=== PATIENT | female | born 1955 | race Caucasian/White ===

== ENCOUNTER 2024-05-13 09:32 | Inpatient (IN) ==
--- NOTE | 2024-05-04 14:08 | PAT Medication Instructions ---
Medication Instructions Date of Service May 04, 2024 Home Medications atorvastatin 40 mg tablet (Lipitor) 40 mg PO HS clopidogrel 75 mg tablet 75 mg PO QAM metoprolol succinate 25 mg tablet,extended release 24 hr 100 mg PO QAM prednisone 5 mg tablet 5 mg PO QAM ipratropium 20 mcg-albuterol 100 mcg/actuation mist for inhalation (Combivent Respimat) 2 puff inhalation QID PRN Shortness Of Breath Or Wheezing fluticasone furoate 50 mcg-vilanterol 25 mcg/dose inhalation powder (Breo Ellipta) 1 ea inhalation DAILY amlodipine 10 mg tablet 10 mg PO QAM doxycycline hyclate 100 mg capsule 100 mg PO BID ASK your prescriber and surgeon clopidogrel 75 mg tablet 75 mg PO QAM Take morning of surgery With a small sip of water, OTHERWISE NOTHING TO EAT OR DRINK AFTER MIDNIGHT: metoprolol succinate 25 mg tablet,extended release 24 hr 100 mg PO QAM prednisone 5 mg tablet 5 mg PO QAM ipratropium 20 mcg-albuterol 100 mcg/actuation mist for inhalation (Combivent Respimat) 2 puff inhalation QID PRN Shortness Of Breath Or Wheezing (if needed) fluticasone furoate 50 mcg-vilanterol 25 mcg/dose inhalation powder (Breo Ellipta) 1 ea inhalation DAILY amlodipine 10 mg tablet 10 mg PO QAM doxycycline hyclate 100 mg capsule 100 mg PO BID Take evening before surgery atorvastatin 40 mg tablet (Lipitor) 40 mg PO HS ipratropium 20 mcg-albuterol 100 mcg/actuation mist for inhalation (Combivent Respimat) 2 puff inhalation QID PRN Shortness Of Breath Or Wheezing (if needed) doxycycline hyclate 100 mg capsule 100 mg PO BID Other Notes If you have any questions please call us at [phone] or [phone] or [phone] or [phone]
--- NOTE | 2024-05-06 08:26 | Anesthesiology Consultation ---
Date of Service May 06, 2024 Assessment & Plan (1) Encounter for pre-operative examination: - Infectious disease screening: Per assessment on 05/06/24: No known recent infectious disease contacts or current infectious disease symptoms. - Cardiology visit (05/05/24): "Based on history, physical examination and the above information do not recommend further invasive or noninvasive cardiovascular testing or procedures prior to proceeding with planned venous surgery. Patient is well optimized from a cardiac standpoint to proceed with her scheduled procedure.. Patient is on aspirin and clopidogrel due to her peripheral arterial disease, therefore, we will leave recommendations on antiplatelets management to your discretion. However, we typically recommend holding clopidogrel for 5-7 days prior to surgery and maintain patient on aspirin for elective procedures. However, this could also be held for 5-7 days if it is felt her bleeding risk is elevated." - Chronic Hyponatremia: Preop labs note sodium at 128. No comparison labs available. Reviewed with Dr. Hillman- recommended comment from PCP if possible. Note sent to PCP- received response from PCP (05/07/24): "Patient does have a history of hyponatremia.. Follows with nephrology for this. Patient is on daily prednisone.. Appears her baseline is between 130 and 133. Would encourage patient to follow her 1.5 L fluid restriction..Send last nephro OV and last CMP/BMP" > PCP forwarded 02/2024 [facility] office visit note in which patient was referred there for evaluation of chronic hyponatremia x 6 months- stable/at baseline at that time. Previous diuretics adjusted. Patient made aware by PCP office 05/07/24 recommendations of fluid restriction prior to surgery given preop findings. PCP/nephro notes/recommendations reviewed with Dr. Hillman. He feels patient okay to proceed as scheduled pending repeat BMP DOS- ordered. - Patient states she will be seeing pulmonary for routine visit that is scheduled prior to upcoming surgery. Awaiting pulmonary office visit note (Dr. Ravi/[facility], appt 05/11). Patient otherwise acceptable risk for given surgery. Chart Review Chart Review: Patient seen in Pre Admission Testing History Surgery Operation Date: 05/13/24 11:50 Proposed Procedures p Right Femoral Artery to Tibial Artery Bypass Graft - Gary Oshea MD Height/Weight Height: 4 ft 11 in Weight: 58.8 kg Allergies Allergy/AdvReac Type Severity Reaction Status Date / Time green marroquin Allergy Mild Rash Verified 05/04/24 12:36 Penicillins Allergy Mild Hives Verified 05/04/24 12:36 Sulfa (Sulfonamide Allergy Mild Hives Verified 05/04/24 12:36 Antibiotics) codeine AdvReac Severe Vomiting Verified 05/04/24 12:36 Medications Home Medications Medication Instructions Recorded Confirmed Last Taken atorvastatin 40 mg tablet (Lipitor) 40 mg PO HS 02/18/19 05/04/24 04/02/24 22:00 clopidogrel 75 mg tablet 75 mg PO QAM 02/18/19 05/04/24 04/03/24 05:00 metoprolol succinate 25 mg 100 mg PO QAM 02/18/19 05/04/24 04/03/24 05:00 tablet,extended release 24 hr nebulizers 02/18/19 02/18/19 Unknown prednisone 5 mg tablet 5 mg PO QAM 02/18/19 05/04/24 04/03/24 05:00 15 mg ipratropium 20 mcg-albuterol 100 2 puff inhalation QID PRN 02/20/19 05/04/24 04/03/24 07:30 mcg/actuation mist for inhalation Shortness Of Breath Or Wheezing (Combivent Respimat) fluticasone furoate 50 1 ea inhalation DAILY 04/03/24 05/04/24 04/03/24 05:00 mcg-vilanterol 25 mcg/dose inhalation powder (Breo Ellipta) amlodipine 10 mg tablet 10 mg PO QAM 05/04/24 05/04/24 Unknown doxycycline hyclate 100 mg capsule 100 mg PO BID 05/04/24 05/04/24 Unknown Past Medical History Medical History (Updated 05/07/24 @ 11:44 by Lexi Garcia) Anxiety Aorto-iliac disease Asthma Bunion of great toe of right foot Following with podiastrist (Dr. Bobo) Difficulty with right foot/bunion ulceration healing intermittently over past 7+ months- podiatry referred patient to vascular/Dr. Oshea d/t decreased blood flow to the foot (reason for upcoming surgery) Chronic hyponatremia Since 2022 Following with nephro, diuretics dosing adjusted at previous visit 02/2024 COPD (chronic obstructive pulmonary disease) Follows with Dr. Ravi[facility] 2.5 via NC HS + PRN activity (rare PRN use) High cholesterol History of coma (2017) Sepsis r/t ? central line infection in setting of flu- pt reports "being on life support" for 1 week at [facility] HTN (hypertension) Hx of colonic polyps On home oxygen therapy 2.5 via NC HS + PRN activity (rare PRN use) Exercise / Class Metabolic Activity III < 4 Walking/Shop/Light housework Past Surgical History Surgical History History of knee surgery left leg - "nerve freeze" Hx of aorto-femoral bypass (2015) [facility] - Fem-Fem right to left Bypass right external iliac artery Hx of colonoscopy with polypectomy Status post insertion of iliac artery stent Past Anesthesia History No Hx of Anesthesia Complications and No Family Hx of Anesthesia Complications History of PONV No Hx of PONV and No Hx of Motion Sickness Social History Smoking Status: Current every day smoker tobacco type: cigarettes Smoking cigarettes per day: smokes 4-5 cigs/day Do You Dip or Chew Tobacco: No Hx Alcohol Use: Yes Alcohol type: beer alcohol intake frequency: a few times a month Hx Substance Use: No substance use type: does not use Review of Systems Occasional palpitations. Posterior cervical sebaceous cyst lanced 05/04/24- David at surgeon's office made aware and states she will relay message to Tia/surgeon. Patient denies chest pain, shortness of breath, fever, chills, cough, wheezing. Physical Exam Vital Signs BP 111/68 P 97 TEMP 97.9 SP02 94%RA RESP 18 Physical Full cervical extension range of motion. Full TMJ range of motion. TMD > 3.5 finger breaths Mallampati Score 3 Dentition: upper/lower partials Lungs: clear throughout to auscultation Cardiac: regular rate and rhythm, no murmurs noted Spine: normal Carotid arteries: negative bruit Extremities: no LE edema Lab Results Anesthesia Preop Results Results Anesthesia Widget: WBC 9.48 K/ul (4.8-10.8) 05/06/24 Hgb 13.1 g/dl (12.0-16.0) 05/06/24 Hct 38.5 % (37.0-47.0) 05/06/24 Plt 353 K/uL (130-400) 05/06/24 Na 128 mmol/L (136-145) L 05/06/24 K 3.9 mmol/L (3.5-5.1) 05/06/24 Cl 91 mmol/L (98-107) L 05/06/24 CO2 29 mmol/L (21-32) 05/06/24 BUN 6 mg/dl (6-23) 05/06/24 Creat 0.47 mg/dl (0.6-1.2) L 05/06/24 Glucose Level 105 mg/dl (70-99(Fasting)) H 05/06/24 PT 10.1 Seconds (9.0-12.0) 05/06/24 PTT 28 Seconds (21-31) 05/06/24 INR 0.9 (0.9-1.1) 05/06/24 Blood Type A Positive 05/06/24 Antibody Screen NEGATIVE 05/06/24 Testing Electrocardiogram Date: 05/05/24 SR at 96bpm. LAE. Chest X-Ray Date: 12/15/23 Bibasilar and RML atelectatic changes. No consolidation, pneumothorax or pleural effusion. The cardiomediastinal silhouette is within normal limits. Echocardiogram Date: 03/15/22 EF 60%. No obvious RWMA. Mild LAD. Elevated left atrial pressures. Degenerated valve, at most mild mitral stenosis (MG 5mmhg).
--- NOTE | 2024-05-12 13:49 | History & Physical Report ---
Date of Service May 12, 2024 History of Present Illness Primary Care Provider: MARBIN Rashid Subjective I had the pleasure of seeing Princess today for follow-up. As you know she is a 68-year-old female who recently had arteriography for a nonhealing ulcer over her first metatarsal head of the right foot. She was found to have a popliteal artery and tibioperoneal trunk occlusion. He is seen in the office today. Her ulcer is now gotten bigger and she has new ulcerations of the great toe. Objective Vitals & Measurements HR: 88 (Monitored) BP: 110/64 SpO2: 96% Physical Exam On exam patient is awake alert and oriented x 3. Blood pressure is 110/64. Lungs are clear. Cor has a reg rate and rhythm. Abdominal exam is benign. She has good femoral pulses in the patent femorofemoral bypass. The right lower extremity has no palpable pulses. There is ulceration present over the metatarsal head medially as well as the 2 ulcerations of the great toe on the medial surface and dorsal surface. Assessment/Plan 1. 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 Risks options benefits were discussed with the patient and documented in the consent form. She is agreeable to go ahead with the surgical procedure. We will image her saphenous vein for availability for a bypass. If the saphenous vein is not usable then prosthetic will be used. We also have her undergo cardiac clearance prior to the procedure. Thank you very much for letting us participate in the care of this patient. Sincerely, Ebony Oshea MD Attestation I have personally spent ___25__ minutes performing [id number] and [id number] activities on this date of service. Activities Include: _x_ review of the medical record _x_ obtaining a history _x_ physical exam/evaluation __ review labs __ review radiology reports _x_ counseling/educating patient/family/caregiver __ discussion/referral to other healthcare professional _x_ documenting care in the medical record __ independent interpretation of results __ communication of results to patient/family/caregiver __ coordination of care Signature Line Electronic Signature on File Gary Oshea MD Author Signature Dt/Tm: 04/30/2024 11:41 AM Pneumatic Tester [facility] [address], [address] [place] [address] Electronically Reviewed/Signed by: Gary Oshea MD Cosigner Signature Dt/Tm: 04/30/2024 11:42 AM Pneumatic Tester [facility] [address], [address] [place] [address] EJS Result Type: .Outpt Ltr Date of Service: April 30, 2024 11:39 EDT Authorization Status: Modified Subject: Follow Up Visit Author or Import Date: MD Oshea Eugene J on April 30, 2024 11:41 EDT Verified By: MD Oshea Eugene J on April 30, 2024 11:41 EDT Encounter info: [id number], [facility] Clinic, 04/30/2024 - 04/30/2024 Allergies Allergy/AdvReac Type Severity Reaction Status Date / Time green marroquin Allergy Mild Rash Verified 05/04/24 12:36 Penicillins Allergy Mild Hives Verified 05/04/24 12:36 Sulfa (Sulfonamide Allergy Mild Hives Verified 05/04/24 12:36 Antibiotics) codeine AdvReac Severe Vomiting Verified 05/04/24 12:36 Home Medications Medication Instructions Recorded Confirmed Type atorvastatin 40 mg tablet (Lipitor) 40 mg PO HS 02/18/19 05/04/24 History clopidogrel 75 mg tablet 75 mg PO QAM 02/18/19 05/04/24 History metoprolol succinate 25 mg 100 mg PO QAM 02/18/19 05/04/24 History tablet,extended release 24 hr nebulizers 02/18/19 02/18/19 History prednisone 5 mg tablet 5 mg PO QAM 02/18/19 05/04/24 History ipratropium 20 mcg-albuterol 100 2 puff inhalation QID PRN 02/20/19 05/04/24 History mcg/actuation mist for inhalation Shortness Of Breath Or Wheezing (Combivent Respimat) fluticasone furoate 50 1 ea inhalation DAILY 04/03/24 05/04/24 History mcg-vilanterol 25 mcg/dose inhalation powder (Breo Ellipta) amlodipine 10 mg tablet 10 mg PO QAM 05/04/24 05/04/24 History doxycycline hyclate 100 mg capsule 100 mg PO BID 05/04/24 05/04/24 History Past Med/Surg History Problem List (Updated 05/07/24 @ 11:44 by Lexi Garcia) Encounter for pre-operative examination Medical History (Updated 05/07/24 @ 11:44 by Lexi Garcia) Chronic hyponatremia Since 2022 Following with nephro, diuretics dosing adjusted at previous visit 02/2024 Bunion of great toe of right foot Following with podiastrist (Dr. Bobo) Difficulty with right foot/bunion ulceration healing intermittently over past 7+ months- podiatry referred patient to vascular/Dr. Oshea d/t decreased blood flow to the foot (reason for upcoming surgery) Aorto-iliac disease Hx of colonic polyps Anxiety History of coma (2016) Sepsis r/t ? central line infection in setting of flu- pt reports "being on life support" for 1 week at [facility] On home oxygen therapy 2.5 via NC HS + PRN activity (rare PRN use) High cholesterol COPD (chronic obstructive pulmonary disease) Follows with Dr. Ravi[facility] 2.5 via NC HS + PRN activity (rare PRN use) Asthma HTN (hypertension) Surgical History Hx of colonoscopy with polypectomy Hx of aorto-femoral bypass (2015) [facility] - Fem-Fem right to left Bypass right external iliac artery Status post insertion of iliac artery stent History of knee surgery left leg - "nerve freeze" Social History Smoking Status: Current every day smoker Tobacco Type: Cigarettes Cigarettes Per Day: smokes 4-5 cigs/day; Second Hand Exposure: No; Do You Dip or Chew Tobacco: No; Tobacco Cessation Education Requested by Patient: No Hx Alcohol Use: Yes Alcohol type: beer Hx Substance Use: No Preferred Language: Nepalese Communication Ability: Effective Commercial Real Estate Broker Required: No Beliefs That Will Affect Care: None Current Living Situation: Significant Other Other Information That Helps Us Care for You: No Feels Safe at Home: Yes Safety Concerns: Feels Safe At This Time Assistive Devices: Denture - Upper, Denture - Lower, Glasses and Oxygen - at Night Assistive Devices Comment: partials top and bottom
[2024-05-13] MEDS: VANCOMYCIN HCL 1,000 MG/270 ML BAG IV SCH (09:54)
[2024-05-13] MEDS: LACTATED RINGER'S 1,000 ML BAG IV SCH (09:54)
[2024-05-13] MEDS ORDERED: HYDROCORTISONE SOD 100 MG in SYRINGE 0 ML IV SCH (10:00)
[2024-05-13 10:21] LABS: Calcium 9.3 mg/dl (8.6-10.3); Creatinine Clr Calc Pharmacy 91.9 ml/min; Est GFR (African American) 119.3 ml/min; Est GFR (Non-African American) 102.9 ml/min; Potassium 4.4 mmol/L (3.5-5.1)
[2024-05-13] MEDS ORDERED: PROMETHAZINE HCL 6.25 MG in SODIUM CHLORIDE 0.9% 50 ML IV PRN (10:23)
[2024-05-13] MEDS ORDERED: PHENYLEPHRINE/NSS 25 MG/250 ML BAG IV PRN ×2 (10:23→17:22)
[2024-05-13] MEDS ORDERED: LABETALOL HCL IV 5 MG/ML 20ML IV PRN (10:23)
[2024-05-13] MEDS ORDERED: ATROPINE SULFATE 0.1 MG/ML 10ML SYR IV PRN (10:23)
[2024-05-13] MEDS ORDERED: ePHEDrine sulfate 50 MG/ML AMP IV PRN (10:23)
--- NOTE | 2024-05-13 11:41 | History & Physical Bridge Note ---
Date of Service May 13, 2024 History & Physical Bridge Note I have examined the patient, reviewed the History & Physical and in the interval since the performance of the History & Physical I have noted the following changes of clinical significance: no changes noted
[2024-05-13] MEDS ORDERED: fentaNYL citrate PF 100 MCG/2 ML VIAL ONE (11:49)
[2024-05-13] MEDS ORDERED: MIDAZOLAM HCL 1 MG/ML 2ML VIAL ONE (11:49)
[2024-05-13] MEDS: HYDROCORTISONE SOD SUCCINATE 100 MG/2 ML VIAL IV SCH (11:58)
--- NOTE | 2024-05-13 11:59 | Anesthesia Procedure Note ---
Anesthesia Procedure Note Arterial Line Note Patient medical history, medications, allergies and vitals reviewed. Date of procedure: 05/13/24 Consent: Risk / Benefits Reviewed With: PT / POA / Parent / Guardian, Accepts Plan, Informed Consent Obtained and All Questions Answered Monitors attached: Pulse Oximetry Time out completed: Yes Premedication: None Laterality: Left Location: Radial Hand hygeine: Soap and water and Alcohol based hand rub Equipment/Supplies: Cap, Mask, Sterile gloves and Sterile drapes Skin prep: Chloraprep Local medication: 1% Lidocaine (ml) Ultrasound used: Yes US equipment and supplies: Sterile Gel and Sterile Probe Cover Attempts: 1 Procedure Summary: 20 gauge angiocath advanced until return of bright red blood. Catheter threaded using seldinger technique with return of pulsatile, bright red blood. Catheter secured with tape and covered with occlusive dressing. Waveform consistent with correct arterial placement. After placement, normal perfusion was observed distal to the site of catheter placement. Post-Procedure: Pt hemodynamically stable, Pt tolerates well and No complication Anesthesia Charges Arterial Line A Line Charges: 53820 Insert [facility]
[2024-05-13] MEDS ORDERED: REMIFENTANIL HCL 1 MG VIAL IV ONE (12:00)
[2024-05-13] MEDS ORDERED: ROCURONIUM BROMIDE 10 MG/ML 5 ML VIAL IV ONE ×2 (12:05→13:35)
[2024-05-13] MEDS ORDERED: ONDANSETRON INJ 2 MG/ML 2 ML VIAL ONE (12:05)
[2024-05-13] MEDS ORDERED: DEXAMETHASONE SOD INJ 4 MG/ML VIAL ONE (12:05)
[2024-05-13] MEDS ORDERED: LIDOCAINE 2% 2 ML VIAL/AMP(20MG/ML) INFIL ONE (12:05)
[2024-05-13] MEDS ORDERED: PROPOFOL IV EMULSION 10 MG/ML 20 ML VIAL IV ONE (12:05)
[2024-05-13] MEDS ORDERED: ALBUMIN HUMAN 5% 12.5 GM/250 ML VIAL IV ONE (12:07)
[2024-05-13] MEDS ORDERED: PROTAMINE SULFATE 10 MG/ML 5 ML VIAL IV ONE (12:10)
[2024-05-13] MEDS ORDERED: diphenhydrAMINE 50 MG/ML VIAL ONE (13:02)
[2024-05-13] MEDS ORDERED: GLYCOPYRROLATE 0.2 MG/ML VIAL ONE (13:02)
[2024-05-13] MEDS: GELATIN SPONGE SZ 100 ONE (13:23)
[2024-05-13] MEDS: THROMBIN FOR SOLN 20000 UNIT KIT ONE (13:23)
[2024-05-13] MEDS ORDERED: HEPARIN SOD (PORCINE) 1000 UNIT/ML ONE (13:35)
[2024-05-13] MEDS ORDERED: SUGAMMADEX SODIUM 200 MG/2 ML VIAL IV ONE (14:23)
[2024-05-13] MEDS ORDERED: HYDROmorphone INJ 2 MG/ML SYR/VIAL ONE (14:23)
[2024-05-13] MEDS: HEPARIN (PORCINE) 1000 UNIT/ML 10 ML (CATH LAB USE ONLY) ONE (14:36)
[2024-05-13] MEDS: BUPIVACAINE/EPINEPHRINE 0.5% MPF 1:200,000 30 ML VIAL ONE (14:36)
[2024-05-13] MEDS: LIDOCAINE 1% LOCAL 20 ML VIAL ONE (14:36)
[2024-05-13] MEDS: ceFAZolin 330 MG/ML 1 GM VIAL ONE (14:38)
[2024-05-13] MEDS: PAPAVERINE HCL INJ 30 MG/ML 2 ML VIAL ONE (14:39)
--- NOTE | 2024-05-13 14:44 | Post Operative Brief Note ---
Immediate Post Op Note Date of Surgery May 13, 2024 Pre & Post Diagnosis Operation Date: 05/13/24 11:50 Pre-Op Diagnosis: Atherosclerosis of the Right Lower extremity with Non Healing Ulcer I identified the patient and participated in the time-out.: Yes Procedure Operation Date: 05/13/24 11:50 Actual Procedures p Right Femoral Artery to Posterior Tibial Artery Prosthetic Bypass Graft(Right) - Gary Oshea MD Surgeon Gary Oshea MD Textbook Associate Alethea,PAC Estimated Blood Loss 200 Findings Consistent with Post-Op Diagnosis Drains Julian Catheter Anesthesia Type General Complications none Disposition Accompanied Patient To Recovery: No Disposition: Recovery Room
[2024-05-13] MEDS: fentaNYL citrate PF 100 MCG/2 ML VIAL IV PRN (15:18)
[2024-05-13 15:39] LABS: Basophils # (auto) 0.03 K/uL (0.00-0.20); Basophils % (auto) 0.2 %; Eosinophils # (auto) 0.05 K/uL (0.00-0.50); Eosinophils % (auto) 0.4 %; Hematocrit (blood only) 34.9 % (37.0-47.0); Hemoglobin 11.5 g/dl (12.0-16.0); Immature Granulocytes # (auto) 0.48 K/uL (0.01-0.20); Immature Granulocytes % (auto) 3.6 %; Lymphocytes # (auto) 0.99 K/uL (1.20-3.40); Lymphocytes % (auto) 7.3 %; Mean Corpuscular Hemoglobin 30.7 pg (25.0-34.0); Mean Corpuscular Volume 93.3 fL (80.0-100.0); Mean Platelet Volume 9.2 fL (9.4-12.4); Monocytes # (auto) 0.87 K/uL (0.11-0.59); Monocytes % (auto) 6.4 %; Neutrophils # (auto) 11.07 K/uL (1.40-6.50); Neutrophils % (auto) 82.1 %; Platelet Count 306 K/uL (130-400); RDW Coefficient of Variation 13.6 % (11.5-14.5); RDW Standard Deviation 46.7 fL (36.4-46.3); Red Blood Count 3.74 M/uL (4.20-5.40); White Blood Count 13.49 K/ul (4.8-10.8)
[2024-05-13] MEDS: HYDROmorphone INJ 1 MG/ML SYRINGE IV PRN (15:58)
[2024-05-13] MEDS: ONDANSETRON INJ 2 MG/ML 2 ML VIAL IV PRN (16:19)
--- NOTE | 2024-05-13 16:26 | Anesthesiology Progress Note ---
Date of Service May 13, 2024 Anesthesia Post Procedure Vital Signs Vital Signs: Temp Pulse Pulse Resp BP BP BP 05/13/24 16:10 36.8 C 89 14 114/49 L 108/74 05/13/24 16:00 86 12 133/55 L 116/72 05/13/24 15:50 83 13 135/55 L 124/73 05/13/24 15:40 80 19 134/56 L 122/71 05/13/24 15:30 81 12 143/59 H 131/74 05/13/24 15:20 82 19 159/65 H 137/76 05/13/24 15:10 83 12 161/67 H 148/84 H 05/13/24 15:01 36.3 C L 88 14 160/93 H 05/13/24 10:23 05/13/24 10:23 36.6 C 92 H 18 126/73 129/85 Pulse Ox O2 Del Method O2 Flow Rate 05/13/24 16:10 95 Nasal Cannula 2 05/13/24 16:00 95 Nasal Cannula 2 05/13/24 15:50 99 Nasal Cannula 2 05/13/24 15:40 100 Oxymask 4 05/13/24 15:30 97 Oxymask 4 05/13/24 15:20 100 Oxymask 4 05/13/24 15:10 100 Oxymask 6 05/13/24 15:01 100 Oxymask 6 05/13/24 10:23 Nasal Cannula 2 05/13/24 10:23 91 Room Air Pain Intensity Right Foot: Pain Intensity: 5 Transfer of Care Handoff Completed per policy Notes Mental Status: alert / awake / arousable and participated in evaluation Patient Amnestic to Procedure: Yes Nausea / Vomiting: adequately controlled Pain: adequately controlled Airway Patency, RR, SpO2: stable & adequate BP & HR: stable & adequate Hydration State: stable & adequate Anesthetic Complications: no major complications apparent and Pt Satisfied with anesthetic care
--- OUTSIDE RECORDS SUMMARY | 2024-05-13 16:28 | External Medical Summary | Continuity of Care Document ---
Author Name Unknown Organization [facility] [address] Address [address] [place], [place] [id number] Care Team Providers Care Mask Former Name Role Phone Guerline Alicia Primary Care Physician [phone] [facility] [id number] Date(s): 05/06/24 - 05/06/24 [facility] [address], [address] [place] [address] [phone] Discharge Disposition: Home or Self Care Attending Physician: MD Oshea Eugene J Referring Physician: MD Oshea Eugene J Allergies, Adverse Reactions, Alerts Substance Criticality Severity Reaction Reaction Severity Status codeine Upset stomach Active amoxicillin unknown Active cephalexin Sore throat Thrush Active penicillin Hives Active sulfa drugs Hives Active Ceftin unknown Active Pepcid Chest tightness Swelling of throat Active Wellbutrin Nightmares Active Levaquin unknown Active Avelox unknown Active Cleocin HCl Thrush Shortness of breath Active statins Muscle cramps Active DULoxetine Swelling of thr oat Rash Active Medications albuterol 0.083% for nebulization Start: 12/16/17 10:31:00 AM EST, 3 mL, NEB, q6h, PRN: as needed for wheezing Start Date: 12/16/17 Status: Ordered albuterol-ipratropium 2.5 mg-0.5 mg/3 mL inhalation solution Start: 12/16/17 10:28:00 AM EST, 3 mL, inhaled, qid, PRN: as needed for shortness of breath or wheezing Start Date: 12/16/17 Status: Ordered amLODIPine 10 mg oral tablet Start: 10/30/21 1:14:00 PM EST, 1 tab, PO, Daily Start Date: 10/30/21 Status: Ordered aspirin 81 mg oral delayed release tablet Start: 10/30/21 1:15:00 PM EST, 1 tab, PO, Daily Start Date: 10/30/21 Status: Ordered Holden Saline 0.65% nasal solution Start: 12/16/17 10:33:00 AM EST, 1 spray, intranasal, Daily Start Date: 12/16/17 Status: Ordered Breo Ellipta 100 mcg-25 mcg/inh inhalation powder Start: 01/30/24 12:02:00 PM EDT, 1 puff, inhaled, Daily, Disp# 1 each Start Date: 01/30/24 Stop Date: 02/29/24 Status: Ordered Combivent Respimat CFC free 20 mcg-100 mcg/inh inhalation aerosol Start: 12/16/17 10:34:00 AM EST, 1 puff, inhaled, qid Start Date: 12/16/17 Status: Ordered cyclobenzaprine 10 mg oral tablet Start: 10/30/21 1:12:00 PM EST, 1 tab, PO, bid, PRN: as needed for spasm Start Date: 10/30/21 Status: Ordered doxycycline hyclate 100 mg oral tablet Start: 04/30/24 10:54:00 AM EDT, 1 tab, PO, bid, x 10 days Start Date: 04/30/24 Status: Ordered Flonase 50 mcg/inh nasal spray Start: 12/16/17 12:55:00 PM EST, 2 spray, each nostril, Daily, PRN: allergy symptoms Start Date: 12/16/17 Status: Ordered furosemide 20 mg oral tablet Start: 10/30/21 1:14:00 PM EST, 1 tab, PO, Daily Start Date: 10/30/21 Status: Ordered losartan 100 mg oral tablet Start: 12/16/17 10:30:00 AM EST, 1 tab, PO, Daily Start Date: 12/16/17 Status: Ordered metoprolol succinate 100 mg oral tablet, extended release Start: 01/30/24 12:04:00 PM EDT, 1 tab, PO, Daily Start Date: 01/30/24 Status: Ordered Plavix 75 mg oral tablet Start: 12/16/17 10:30:00 AM EST, 1 tab, PO, Daily Start Date: 12/16/17 Status: Ordered Potassium Chloride (Eqv-K-Tab) 20 mEq oral tablet, extended release Start: 12/20/22 11:30:00 AM EST, See Instructions, prn cramps Start Date: 12/20/22 Status: Ordered Praluent Pen 150 mg/mL subcutaneous solution Start: 03/05/19 10:08:00 AM EDT, 300 mg =, subQ, [id number] Start Date: 03/05/19 Status: Ordered predniSONE 10 mg oral tablet Start: 12/16/17 10:31:00 AM EST, See Instructions, 0.5 tab po daily Start Date: 12/16/17 Status: Ordered Tylenol Extra Strength 500 mg oral tablet Start: 12/16/17 10:32:00 AM EST, 2 tab, PO, q4h, PRN: as needed for pain Start Date: 12/16/17 Status: Ordered unlisted medication Start: 12/16/17 10:28:00 AM EST, Oxygen 2.5 LPM @ hs Start Date: 12/16/17 Status: Ordered Vitamin D3 Start: 12/20/22 11:31:00 AM EST Start Date: 12/20/22 Status: Ordered Voltaren 1% topical gel Start: 12/16/17 10:34:00 AM EST, 1 appl, topical, qid, PRN: Pain Start Date: 12/16/17 Status: Ordered Problem List Condition Confirmation Course Effective Dates Status H ealt Status Informant Allergic rhinitis Confirmed Active (atherosclerosis) Confirmed Active Peripheral arterial disease Confirmed Active Bilateral knee pain Confirmed Active Bronchitis Confirmed Active Candidiasis Confirmed Active Carotid artery bruit Confirmed Active COPD (chronic obstructive pulmonary disease) Confirmed Active Congenital soft palate abnormality Confirmed Active Head congestion Confirmed Active Leg cramps Confirmed Active Diverticulosis Confirmed Active Ventral hernia Confirmed Active S/P femoral-femoral bypass surgery Confirmed Active Hyperglycemia Confirmed Active Hyperlipidemia Confirmed Active Trichomoniasis Confirmed Active Low back pain Confirmed Active Asymptomatic microscopic hematuria Confirmed Active Aortoiliac occlusive disease Confirmed Active Osteoarthritis of both knees Confirmed Active PVD (peripheral vascular disease) Confirmed Active Restless leg syndrome Confirmed Active Sore throat Confirmed Active Tobacco user Confirmed Active Procedures Procedure Date Related Diagnosis Body Site Status RLE Angiogram w/o intervention 04/03/24 Completed Abdominal aortogram with FINE SANDER /Stent Right External Iliac with left brachial approach 02/20/19 Completed Fem-Fem artery bypass w/ FINE SANDER left popliteal artery 1 11/16/16 Completed Left Lower limb angiogram Completed Left SFA distal, Left poplit eal artery angioplasty and stent Completed Right CONSULTING PSYCHOLOGIST and SFA Endarterectomy Completed 1? stent Results Radiology Reports * Exam Date Time Procedure Performing Provider Status 05/06/24 7:47 AM VL Vein Mapping Lower Extremity Preop Yue Strong; Final Notes: (VL Vein Mapping Lower Extremity Preop) Reason For Exam: Pre op bypass VL Vein Mapping Lower Extremity Preop [facility] FINAL REPORT Name: LAXMI HOLCOMB : 1955 Visit: [id number] Date: 06 May 2024 TYPE OF TEST: Peripheral Venous Testing REASON FOR TEST Pre-op bypass INTERPRETATION/FINDINGS Vein mapping performed of the bilateral lower extremities: RIGHT LE. The great saphenous vein appears to be an adequate conduit for distal bypass in the upper leg (diameters 2.7 - 7.9 mm). 2. The great saphenous vein appears to be an inadequate conduit for distal bypass in the lower leg, the smallest diameter is 1.7 mm. 3. The small saphenous vein is may be an adequate conduit for distal bypass (diameters 2.3 - 2.7 mm). 4. No evidence of superficial vein thrombosis in the great or small saphenous veins. LEFT LE. The great saphenous vein appears to be an adequate conduit for distal bypass in the upper leg (diameters 3.2 - 5.9 mm). 2. The great saphenous vein appears to be an inadequate conduit for distal bypass in the lower leg, the smallest diameter is 1.8 mm. 3. The small saphenous vein is an inadequate conduit for distal bypass (diameters 1.9 - 4.1 mm). 4. No evidence of superficial vein thrombosis in the great or small saphenous veins. No previous studies available for comparison. IMPRESSION/COMMENTS I have personally reviewed the data relevant to the interpretation of this study. TECHNOLOGIST: Yue Strong, RDCS, RVT PHYSICIAN: Constantine Abad MD Signed: 05/06/2024 09:39 AM Final Dictated by:MD Abad Aditya Dictated DT/TM:05/06/2024 9:39 Signed by:MD Abad Aditya Signed (Electronic Signature):05/06/2024 9:39 a Transcribed by: Social History Social History Type Response Tobacco Former smoker, Cigar ettes Smoking Status Former Smoker, quit > 1 yr Sex Female Patient Care team information Care Team Personnel Name: JOHNNY Barcenas Lynn Position: Physician Infection Prevention Practitioner Exempt - Vasc Surg Member Role: Lifetime Relationship Address: Address: [address] [place] [address] [address] [place] [address] Name: MARBIN Alicia Ashley Lynn Position: Referring Member Role: Primary Care Provider Address: Address: [address] [place] [address] [place] Care Team Related Persons Name: LORI MILLER Address: [address] [phone]
[2024-05-13] MEDS ORDERED: IPRATROPIUM BROMIDE/ALBUTEROL respimat INH INH PRN (17:22)
[2024-05-13] MEDS ORDERED: VANCOMYCIN CONSULT ACTIVE PRN (17:22)
[2024-05-13] MEDS ORDERED: POTASSIUM CHLORIDE CRTAB 20 MEQ TABCR PO PRN (17:38)
--- NOTE | 2024-05-13 18:21 | Critical Care Consultation ---
Date of Consultation May 13, 2024 Assessment & Plan (1) PAD (peripheral artery disease): (2) HTN (hypertension): (3) Asthma: (4) COPD (chronic obstructive pulmonary disease): (5) High cholesterol: Plan Reason Critically Ill: 68 YOF admitted to the ICU s/p Right Femoral Artery to Posterior Tibial Artery Prosthetic Bypass Graft(Right) performed 05/13/24 Neuro - NO acuteneeds CAM ICU: NEGATIVE - pain control per surgery Cardiac - PAD, HTN. HLD, - p Right Femoral Artery to Posterior Tibial Artery Prosthetic Bypass Graft(Right)- NV/CV checks - Hemodynamics per vascular surgery - NV/CV assessments Respiratory - COPD, everyday smoker - continue with NOY and BREO or hospital equivalent GI - NO acute needs - diet as tolerated RENAL/LYTES - Chronic hyponatremia - appears as she has history of hypoosmolar hyponatremia- follow - no acute nees at this time - ICU electroltye protocol - NO acute needs - Dc solis when appropriate- likely inthe am ENDO - NO acute needs HEME - hx of chronic anemia - no acute needs- followHGB/HCT- transfusion per vascular ID - NO concern for infectious etiology at this time LINES/IV ACCESS - PIVAlisa Foley Continue use of these lines DVT PROPHYLAXIS - SCDS, chemo prophy per vascular once hemostasis is ensured DISPO; ICU 24 hours post procedure- follow hemodyanmics I have personally spent 40 minutes of critical care time in the direct management of this patient. This is a life/limb threatening event. This includes time spent evaluating patient, direct bedside care, chart review, placing orders, interpretation of diagnostic studies, discussion with consultants, patient, and family members, as well as other required patient management activities. This time is exclusive of all separately billable procedures, and teaching time and separate from and in addition to any other critical care service time. Thank you for allowing us to participate in the care of this patient. Please refer to my attending physician's documentation for any further recommendations. History of Present Illness Reason for Consultation: therosclerosis of the Right Lower extremity with Non Healing Ulcer, p Right Femoral Artery to Posterior Tibial Artery Prosthetic Bypass Graft(Right) Requesting Physician: Gary Oshea MD Attending Physician: Gary Oshea MD History of Present Illness 68 YOF with medical history of: COPD, Continued smoker, PAD, hyponatremia, HLD, Anemia. Patient is s/p Right Femoral Artery to Posterior Tibial Artery Prosthetic Bypass Graft(Right) performed today by Dr. Oshea. Patient is also with previous angiograms with stenting to the right external iliac artery p erformed in the past. Patient is to the ICU awake alert oriented, and currently without need for vasopressor medications. She is with right calf incision athat is dry and intact without strike through. Legs are warm and pulses are present. Patient will remain in ICU for following of CV status and nuerovascular status of her right leg. CODE: FULL Allergies Allergy/AdvReac Type Severity Reaction Status Date / Time green marroquin Allergy Mild Rash Verified 05/13/24 10:13 Penicillins Allergy Mild Hives Verified 05/13/24 10:13 Sulfa (Sulfonamide Allergy Mild Hives Verified 05/13/24 10:13 Antibiotics) codeine AdvReac Severe Vomiting Verified 05/13/24 10:13 Home Medications Medication Instructions Recorded Confirmed Type atorvastatin 40 mg tablet (Lipitor) 40 mg PO HS 02/18/19 05/13/24 History clopidogrel 75 mg tablet 75 mg PO QAM 02/18/19 05/13/24 History metoprolol succinate 25 mg 100 mg PO QAM 02/18/19 05/13/24 History tablet,extended release 24 hr nebulizers 02/18/19 02/18/19 History prednisone 5 mg tablet 5 mg PO QAM 02/18/19 05/13/24 History ipratropium 20 mcg-albuterol 100 2 puff inhalation QID PRN 02/20/19 05/13/24 History mcg/actuation mist for inhalation Shortness Of Breath Or Wheezing (Combivent Respimat) fluticasone furoate 50 1 ea inhalation DAILY 04/03/24 05/13/24 History mcg-vilanterol 25 mcg/dose inhalation powder (Breo Ellipta) amlodipine 10 mg tablet 10 mg PO QAM 05/04/24 05/13/24 History doxycycline hyclate 100 mg capsule 100 mg PO BID 05/04/24 05/13/24 History Lasix 20 mg PO PRN Edema 05/13/24 History acetaminophen 500 mg PO 05/13/24 History acetaminophen 500 mg tablet 500 mg PO Q6H PRN Pain, Severe 05/13/24 05/13/24 History oxycodone 5 mg tablet 5 mg PO 05/13/24 History potassium chloride 40 meq PO DIRECTED PRN when 05/13/24 05/13/24 History taking Lasix and/or cramp Patient History Medical History Chronic hyponatremia Since 2022 Following with nephro, diuretics dosing adjusted at previous visit 02/2024 Bunion of great toe of right foot Following with podiastrist (Dr. Bobo) Difficulty with right foot/bunion ulceration healing intermittently over past 7+ months- podiatry referred patient to vascular/Dr. Oshea d/t decreased blood flow to the foot (reason for upcoming surgery) Aorto-iliac disease Hx of colonic polyps Anxiety History of coma (2016) Sepsis r/t ? central line infection in setting of flu- pt reports "being on life support" for 1 week at [facility] On home oxygen therapy 2.5 via NC HS + PRN activity (rare PRN use) High cholesterol COPD (chronic obstructive pulmonary disease) Follows with Dr. Ravi, [facility] 2.5 via NC HS + PRN activity (rare PRN use) Asthma HTN (hypertension) Surgical History Hx of colonoscopy with polypectomy Hx of aorto-femoral bypass (2015) PH Vinicio - Fem-Fem right to left Bypass right external iliac artery Status post insertion of iliac artery stent History of knee surgery left leg - "nerve freeze" Social History Smoking Status: Current every day smoker Tobacco Type: Cigarettes Cigarettes Per Day: smokes 4-5 cigs/day; Second Hand Exposure: No; Do You Dip or Chew Tobacco: No; Tobacco Cessation Education Requested by Patient: No Hx Alcohol Use: Yes Alcohol type: beer Hx Substance Use: No Preferred Language: Bangladeshi Communication Ability: Effective Rouge Sifter Required: No Beliefs That Will Affect Care: None Current Living Situation: Significant Other Other Information That Helps Us Care for You: No Feels Safe at Home: Yes Safety Concerns: Feels Safe At This Time Assistive Devices: Denture - Upper, Denture - Lower, Glasses and Oxygen - at Night Assistive Devices Comment: partials top and bottom Review of Systems Review of Systems: REVIEW OF SYSTEMS: Constitutional: No fever, sweats or chills Eyes: No diplopia, no worsening or blurred vision ENT: normal hearing, no trouble swallowing Respiratory: (+) smoker, COPD, No cough, sputum, dyspnea at rest or on exertion Cardiovascular: (+) previous leg surgeries, No chest pain, tightness or palpitations Abdomen: No pain, nausea, vomiting, diarrhea or constipation Musculoskeletal: (+) right foot bunion and pain, No joint pain, calf pain, swelling Neurologic: (+) burning to right foot, No weakness, numbness/tingling, or balance problems Psychiatric: No anxiety or depression Skin: No rash or itch Physical Exam Physical Exam: PHYSICAL EXAM: General: awake, alert, no apparent distress Head: Normocephalic, atraumatic ENT: PERRL, EOMI, no pharyngeal exudate, mucous membranes moist Neuro: AAO x 3, speech clear and appropriate, strength intact bilaterally 5/5, sensation intact and equal all extremities and dermatomes, no pronator drift Chest: equal rise and fall of the chest, no accessory muscle use, no heaves or thrills, expiratory wheeze, on room air, Cardiac: Regular rate and rhythm, telemetry reviewed, skin warm dry, cap refill <3 seconds, peripheral pulses +2 no JVD, no murmur, no edema GI: NABS x 4 quadrants, soft, nontender to palpation, no rebound, guarding or tenderness : solis to gravity Results & Data Results & Data Vital Signs (Past 12 Hours) Vital Signs Temp Pulse Pulse Resp BP BP BP 05/13/24 17:40 86 14 112/47 L 105/64 05/13/24 17:10 87 15 110/46 L 114/67 05/13/24 16:55 92 H 14 114/47 L 102/67 05/13/24 16:40 85 15 122/51 L 111/68 05/13/24 16:25 86 18 120/49 L 121/66 05/13/24 16:10 36.8 C 89 14 114/49 L 108/74 05/13/24 16:00 86 12 133/55 L 116/72 05/13/24 15:50 83 13 135/55 L 124/73 05/13/24 15:40 80 19 134/56 L 122/71 05/13/24 15:30 81 12 143/59 H 131/74 05/13/24 15:20 82 19 159/65 H 137/76 05/13/24 15:10 83 12 161/67 H 148/84 H 05/13/24 15:01 36.3 C L 88 14 160/93 H 05/13/24 10:23 05/13/24 10:23 36.6 C 92 H 18 126/73 129/85 Pulse Ox O2 Del Method O2 Flow Rate 05/13/24 17:40 3 L Nasal Cannula 2 05/13/24 17:10 92 Nasal Cannula 2 05/13/24 16:55 94 Nasal Cannula 2 05/13/24 16:40 93 Nasal Cannula 2 05/13/24 16:25 93 Nasal Cannula 2 05/13/24 16:10 95 Nasal Cannula 2 05/13/24 16:00 95 Nasal Cannula 2 05/13/24 15:50 99 Nasal Cannula 2 05/13/24 15:40 100 Oxymask 4 05/13/24 15:30 97 Oxymask 4 05/13/24 15:20 100 Oxymask 4 05/13/24 15:10 100 Oxymask 6 05/13/24 15:01 100 Oxymask 6 05/13/24 10:23 Nasal Cannula 2 05/13/24 10:23 91 Room Air Laboratory Results Abnormal lab results 05/13/24 05/13/24 Range/Units 09:50 15:08 WBC 13.49 H (4.8-10.8) K/ul RBC 3.74 L (4.20-5.40) M/uL Hgb 11.5 L (12.0-16.0) g/dl Hct 34.9 L (37.0-47.0) % RDW Std Deviation 46.7 H (36.4-46.3) fL MPV 9.2 L (9.4-12.4) fL Neut # (Auto) 11.07 H (1.40-6.50) K/uL Lymph # (Auto) 0.99 L (1.20-3.40) K/uL [place] # (Auto) 0.87 H (0.11-0.59) K/uL Immature Gran # (Auto) 0.48 H (0.01-0.20) K/uL Sodium 132 L (136-145) mmol/L Chloride 95 L (98-107) mmol/L BUN 5 L (6-23) mg/dl Creatinine 0.47 L (0.6-1.2) mg/dl Fasting Glucose 144 H (70-99) mg/dl Crossmatch See Detail Coding Level of Care Code 69077 CRITICAL CARE 1ST 30-74M Diagnoses PAD (peripheral artery disease) I73.9 HTN (hypertension) I10 Asthma J45.909 COPD (chronic obstructive pulmonary disease) J44.9 High cholesterol E78.00
[2024-05-13] MEDS: DOXYCYCLINE HYCLATE 100 MG CAP PO SCH (21:44)
[2024-05-13] MEDS: oxyCODONE/ACETAMINOPHEN 5mg/325mg TAB PO PRN (21:44)
[2024-05-13] MEDS: ATORVASTATIN 40 MG TAB PO SCH (21:44)
[2024-05-14] MEDS: VANCOMYCIN HCL 750 MG in SODIUM CHLORIDE 0.9% 250 ML IV SCH (00:18)
[2024-05-14] MEDS: MoRPHine SULFATE 4 MG/ML 1 ML CARP\\VIAL IV PRN (00:29)
[2024-05-14] MEDS: Ipratropium HFA Inhaler (Combivent Respimat P&T Subs) INH PRN (04:57)
[2024-05-14] MEDS: Albuterol HFA 8 GM Inhaler (Combivent Respimat P&T Subs) INH PRN (04:58)
[2024-05-14 05:12] LABS: Basophils # (auto) 0.03 K/uL (0.00-0.20); Basophils % (auto) 0.3 %; Eosinophils # (auto) 0.06 K/uL (0.00-0.50); Eosinophils % (auto) 0.5 %; Hemoglobin 10.4 g/dl (12.0-16.0); Immature Granulocytes # (auto) 0.06 K/uL (0.01-0.20); Immature Granulocytes % (auto) 0.5 %; Lymphocytes # (auto) 2.96 K/uL (1.20-3.40); Lymphocytes % (auto) 26.7 %; Mean Corpuscular Hemoglobin 30.8 pg (25.0-34.0); Mean Corpuscular Hgb Conc 32.5 g/dL (32.0-36.0); Mean Corpuscular Volume 94.7 fL (80.0-100.0); Mean Platelet Volume 9.4 fL (9.4-12.4); Monocytes # (auto) 1.69 K/uL (0.11-0.59); Monocytes % (auto) 15.3 %; Neutrophils # (auto) 6.27 K/uL (1.40-6.50); Neutrophils % (auto) 56.7 %; Platelet Count 250 K/uL (130-400); RDW Coefficient of Variation 13.6 % (11.5-14.5); RDW Standard Deviation 47.6 fL (36.4-46.3); Red Blood Count 3.38 M/uL (4.20-5.40); White Blood Count 11.07 K/ul (4.8-10.8)
[2024-05-14 05:14] LABS: BUN Creatinine Ratio 14.6 (10-20); Creatinine Clr Calc Pharmacy 104.6 ml/min; Est GFR (African American) 124.8 ml/min; Est GFR (Non-African American) 107.7 ml/min; Potassium 3.6 mmol/L (3.5-5.1)
[2024-05-14] MEDS: amLODIPine BESYLATE 5 MG TAB PO SCH (08:21)
[2024-05-14] MEDS: predniSONE 5 MG TAB PO SCH (08:21)
[2024-05-14] MEDS: CLOPIDOGREL BISULFATE 75 MG TAB PO SCH (08:21)
[2024-05-14] MEDS: METOPROLOL SUCC 50MG EXT REL TAB PO SCH (08:21)
[2024-05-14] MEDS: FLUTICASONE/VILANTEROL 100/25MCG 14 PUFFS/INHALER INH SCH (08:21)
--- NOTE | 2024-05-14 11:49 | Critical Care Progress Note ---
Date of Service May 14, 2024 Assessment & Plan (1) PAD (peripheral artery disease): (2) HTN (hypertension): (3) Asthma: (4) COPD (chronic obstructive pulmonary disease): (5) High cholesterol: Plan Reason Critically Ill: 68 YOF admitted to the ICU s/p Right Femoral Artery to Posterior Tibial Artery Prosthetic Bypass Graft(Right) performed 05/13/24 Neuro - NO acuteneeds CAM ICU: NEGATIVE - pain control per surgery Cardiac - PAD, HTN. HLD, - p Right Femoral Artery to Posterior Tibial Artery Prosthetic Bypass Graft(Right)- NV/CV checks - Hemodynamics per vascular surgery - NV/CV assessments Respiratory - COPD, everyday smoker - continue with NOY and BREO or hospital equivalent GI - NO acute needs - diet as tolerated RENAL/LYTES - Chronic hyponatremia - appears as she has history of hypoosmolar hyponatremia- follow - no acute nees at this time - ICU electroltye protocol - NO acute needs - Dc solis when appropriate- likely inthe am ENDO - NO acute needs HEME - hx of chronic anemia - no acute needs- followHGB/HCT- transfusion per vascular ID - NO concern for infectious etiology at this time LINES/IV ACCESS - PIV, NilesIesha rosenberg Continue use of these lines DVT PROPHYLAXIS - SCDS, chemo prophy per vascular once hemostasis is ensured DISPO: Art line is now out. Patient hemodynamically stable. Critical care services to sign off. Please call with questions. Thank you for the consult. Admission and Anticipated Discharge Date Admission Date: May 13, 2024 Subjective No acute events overnight. Patient hemodynamically stable. Review of Systems Review of Systems: All systems reviewed & are unremarkable except as noted in HPI & below Physical Exam Physical Exam: PHYSICAL EXAM: General: awake, alert, no apparent distress Head: Normocephalic, atraumatic ENT: PERRL, EOMI, no pharyngeal exudate, mucous membranes moist Neuro: AAO x 3, speech clear and appropriate, strength intact bilaterally 5/5, sensation intact and equal all extremities and dermatomes, no pronator drift Chest: equal rise and fall of the chest, no accessory muscle use, no heaves or thrills, expiratory wheeze, on room air, Cardiac: Regular rate and rhythm, telemetry reviewed, skin warm dry, cap refill <3 seconds, peripheral pulses +2 no JVD, no murmur, no edema GI: NABS x 4 quadrants, soft, nontender to palpation, no rebound, guarding or tenderness : solis to gravity Results & Data Results & Data Vital Signs (Past 12 Hours) Vital Signs Temp Pulse Pulse Resp BP BP BP 05/14/24 10:34 05/14/24 10:18 73 18 05/14/24 09:51 73 17 05/14/24 09:42 78 17 05/14/24 09:39 77 21 05/14/24 09:21 75 13 05/14/24 09:15 71 12 05/14/24 09:00 127/70 05/14/24 08:57 05/14/24 08:51 81 18 05/14/24 08:42 75 18 05/14/24 08:34 104/65 05/14/24 08:34 104/65 05/14/24 08:34 104/65 05/14/24 08:30 78 15 05/14/24 08:21 82 26 H 05/14/24 08:00 05/14/24 08:00 97/57 L 05/14/24 08:00 78 17 05/14/24 07:51 83 15 05/14/24 07:48 80 20 05/14/24 07:39 83 20 05/14/24 07:21 75 16 05/14/24 07:15 76 17 05/14/24 07:00 110/66 05/14/24 06:57 79 17 05/14/24 06:54 75 12 05/14/24 06:48 74 13 05/14/24 06:36 79 19 05/14/24 06:29 124/73 05/14/24 06:18 85 24 05/14/24 06:00 127/61 05/14/24 06:00 78 27 H 05/14/24 06:00 80 15 124/60 124/73 05/14/24 05:51 78 12 05/14/24 05:42 75 14 05/14/24 05:30 76 15 05/14/24 05:24 78 16 05/14/24 05:12 78 15 05/14/24 05:00 132/74 05/14/24 05:00 132/74 05/14/24 05:00 132/74 05/14/24 05:00 77 20 143/62 H 132/74 05/14/24 04:58 79 18 05/14/24 04:57 83 21 05/14/24 04:30 74 15 05/14/24 04:15 80 13 05/14/24 04:06 75 16 05/14/24 03:55 75 16 126/73 05/14/24 03:55 75 130/55 L 05/14/24 03:54 75 14 05/14/24 03:30 75 14 05/14/24 03:24 76 15 05/14/24 03:12 78 14 05/14/24 03:06 78 20 05/14/24 03:00 126/73 05/14/24 03:00 36.7 C 84 14 150/61 H 126/73 05/14/24 02:57 76 13 05/14/24 02:00 36.6 C 82 14 136/74 05/14/24 01:00 74 16 147/62 H 05/14/24 00:00 75 05/14/24 00:00 36.6 C 83 16 128/86 05/14/24 00:00 151/70 H 05/13/24 23:59 Pulse Ox Pulse Ox O2 Del Method O2 Del Method O2 Flow Rate 05/14/24 10:34 Nasal Cannula 2 05/14/24 10:18 96 05/14/24 09:51 97 05/14/24 09:42 96 05/14/24 09:39 97 05/14/24 09:21 98 05/14/24 09:15 98 05/14/24 09:00 05/14/24 08:57 98 05/14/24 08:51 05/14/24 08:42 99 05/14/24 08:34 05/14/24 08:34 05/14/24 08:34 05/14/24 08:30 95 05/14/24 08:21 95 05/14/24 08:00 Nasal Cannula 05/14/24 08:00 05/14/24 08:00 93 05/14/24 07:51 93 05/14/24 07:48 93 05/14/24 07:39 92 05/14/24 07:21 96 05/14/24 07:15 94 05/14/24 07:00 05/14/24 06:57 93 05/14/24 06:54 93 05/14/24 06:48 93 05/14/24 06:36 93 05/14/24 06:29 05/14/24 06:18 94 05/14/24 06:00 05/14/24 06:00 97 05/14/24 06:00 95 Nasal Cannula 2 05/14/24 05:51 97 05/14/24 05:42 97 05/14/24 05:30 97 05/14/24 05:24 94 05/14/24 05:12 95 05/14/24 05:00 05/14/24 05:00 05/14/24 05:00 05/14/24 05:00 95 Nasal Cannula 2 05/14/24 04:58 94 Nasal Cannula 2 05/14/24 04:57 93 05/14/24 04:30 95 05/14/24 04:15 95 05/14/24 04:06 97 05/14/24 03:55 96 Nasal Cannula 2 05/14/24 03:55 05/14/24 03:54 97 05/14/24 03:30 98 05/14/24 03:24 98 05/14/24 03:12 97 05/14/24 03:06 96 05/14/24 03:00 05/14/24 03:00 96 Nasal Cannula 2 05/14/24 02:57 97 05/14/24 02:00 99 Nasal Cannula 2 05/14/24 01:00 98 Nasal Cannula 2 05/14/24 00:00 05/14/24 00:00 99 Nasal Cannula 2 05/14/24 00:00 05/13/24 23:59 96 Coding Level of Care Code 58454 SUB INP/OBS CARE Diagnoses PAD (peripheral artery disease) I73.9 HTN (hypertension) I10 Asthma J45.909 COPD (chronic obstructive pulmonary disease) J44.9 High cholesterol E78.00
--- NOTE | 2024-05-14 13:01 | Surgery Progress Note ---
Date of Service May 14, 2024 Assessment & Plan (1) PAD (peripheral artery disease): Plan: Patient is postoperative day 1 from a femoral to posterior tibial artery bypass. She is doing well she is up in a chair. We will transfer to a regular room and increase her activity with PT and OT. Admission and Anticipated Discharge Date Admission Date: May 13, 2024 Subjective Patient is complaining today of pain in her right great toe in the area of the open sore and bunion. She also complains of some incisional discomfort. Physical Exam Physical Exam: Patient is up in a chair. Constitutional: WD/WN, vitals as above Cardiovascular: Vessels: posterior tibial pulses present (Excellent posterior tibial Doppler.) Extremities: normal capillary refill Musculoskeletal: Extremities: strength 5/5 throughout Skin: + incision (Lower incision dressing is i ntact, Prevena dressing is intact.) Neurologic: CN's II-XI intact bilaterally and moves all extremities Psychiatric: Orientation: alert and oriented x 3 Results & Data Vital Signs (Past 12 Hours) Vital Signs Temp Pulse Pulse Resp BP BP BP 05/14/24 12:00 71 102/59 L 05/14/24 11:35 05/14/24 11:25 69 102/64 05/14/24 10:34 05/14/24 10:18 73 18 05/14/24 10:00 75 131/69 05/14/24 09:51 73 17 05/14/24 09:42 78 17 05/14/24 09:39 77 21 05/14/24 09:21 75 13 05/14/24 09:15 71 12 05/14/24 09:00 68 127/70 05/14/24 09:00 127/70 05/14/24 08:57 05/14/24 08:51 81 18 05/14/24 08:42 75 18 05/14/24 08:34 104/65 05/14/24 08:34 104/65 05/14/24 08:34 104/65 05/14/24 08:30 78 15 05/14/24 08:21 82 26 H 05/14/24 08:00 71 97/57 L 05/14/24 08:00 05/14/24 08:00 97/57 L 05/14/24 08:00 78 17 05/14/24 07:51 83 15 05/14/24 07:48 80 20 06/27/24 07:39 83 20 05/14/24 07:21 75 16 05/14/24 07:15 76 17 05/14/24 07:00 110/66 05/14/24 06:57 79 17 05/14/24 06:54 75 12 05/14/24 06:48 74 13 05/14/24 06:36 79 19 05/14/24 06:29 124/73 05/14/24 06:18 85 24 05/14/24 06:00 127/61 05/14/24 06:00 78 27 H 05/14/24 06:00 80 15 124/60 124/73 05/14/24 05:51 78 12 05/14/24 05:42 75 14 05/14/24 05:30 76 15 05/14/24 05:24 78 16 05/14/24 05:12 78 15 05/14/24 05:00 132/74 05/14/24 05:00 132/74 05/14/24 05:00 132/74 05/14/24 05:00 77 20 143/62 H 132/74 05/14/24 04:58 79 18 05/14/24 04:57 83 21 05/14/24 04:30 74 15 05/14/24 04:15 80 13 05/14/24 04:06 75 16 05/14/24 03:55 75 16 126/73 05/14/24 03:55 75 130/55 L 05/14/24 03:54 75 14 05/14/24 03:30 75 14 05/14/24 03:24 76 15 05/14/24 03:12 78 14 05/14/24 03:06 78 20 05/14/24 03:00 126/73 05/14/24 03:00 36.7 C 84 14 150/61 H 126/73 05/14/24 02:57 76 13 05/14/24 02:00 36.6 C 82 14 136/74 05/14/24 01:00 74 16 147/62 H Pulse Ox Pulse Ox O2 Del Method O2 Del Method O2 Flow Rate O2 Flow Rate 05/14/24 12:00 05/14/24 11:35 89 L 2 05/14/24 11:25 05/14/24 10:34 Nasal Cannula 2 05/14/24 10:18 96 05/14/24 10:00 05/14/24 09:51 97 05/14/24 09:42 96 05/14/24 09:39 97 05/14/24 09:21 98 05/14/24 09:15 98 05/14/24 09:00 05/14/24 09:00 05/14/24 08:57 98 05/14/24 08:51 05/14/24 08:42 99 05/14/24 08:34 05/14/24 08:34 05/14/24 08:34 05/14/24 08:30 95 05/14/24 08:21 95 05/14/24 08:00 05/14/24 08:00 Nasal Cannula 05/14/24 08:00 05/14/24 08:00 93 05/14/24 07:51 93 05/14/24 07:48 93 05/14/24 07:39 92 05/14/24 07:21 96 05/14/24 07:15 94 05/14/24 07:00 05/14/24 06:57 93 05/14/24 06:54 93 05/14/24 06:48 93 05/14/24 06:36 93 05/14/24 06:29 05/14/24 06:18 94 05/14/24 06:00 05/14/24 06:00 97 05/14/24 06:00 95 Nasal Cannula 2 05/14/24 05:51 97 05/14/24 05:42 97 05/14/24 05:30 97 05/14/24 05:24 94 05/14/24 05:12 95 05/14/24 05:00 05/14/24 05:00 05/14/24 05:00 05/14/24 05:00 95 Nasal Cannula 2 05/14/24 04:58 94 Nasal Cannula 2 05/14/24 04:57 93 05/14/24 04:30 95 05/14/24 04:15 95 05/14/24 04:06 97 05/14/24 03:55 96 Nasal Cannula 2 05/14/24 03:55 05/14/24 03:54 97 05/14/24 03:30 98 05/14/24 03:24 98 05/14/24 03:12 97 05/14/24 03:06 96 05/14/24 03:00 05/14/24 03:00 96 Nasal Cannula 2 05/14/24 02:57 97 05/14/24 02:00 99 Nasal Cannula 2 05/14/24 01:00 98 Nasal Cannula 2
--- NOTE | 2024-05-14 13:11 | Operative Report ---
Post Operative Report Pre & Post Diagnosis Operation Date: 05/13/24 11:50 Pre-Op Diagnosis: Atherosclerosis of the Right Lower Extremity with Non Healing Ulcer Post-Op Diagnosis: Atherosclerosis of the Right Lower Extremity with Non Healing Ulcer I identified the patient and participated in the time-out.: Yes Procedure Operation Date: 05/13/24 11:50 Actual Procedures p Right Femoral Artery to Posterior Tibial Artery Prosthetic Bypass Graft(Right) - Gary Oshea MD Surgeon Gary Oshea MD Liquid [employer] Operator Alethea,PAC Estimated Blood Loss 200 Findings Consistent with Post-Op Diagnosis Specimens none Anesthesia Type General Complications none Disposition Accompanied Patient To Recovery: No Disposition: Recovery Room Indications This is a 68-year-old female with a right lower extremity superficial femoral artery and popliteal artery occlusion with a nonhealing ulcer over her left great toe metatarsal head. Bypass was recommended. She has no usable vein therefore recommend a prosthetic. I have discussed the risks options and benefits of the procedure with the patient. The patient understands the risks options and benefits and agrees to the procedure. Description of Procedure Patient was taken the operating placed spine position. After the left lower extremities prepped draped in a sterile manner a timeout was performed and the patient was identified. A longitudinal incision was made in the right groin. This was carried down to where the common femoral artery was identified. This was carried upward to the inguinal ligament and the cross femoral bypass was identified. Cross femoral bypass common femoral artery proximally and then distally were isolated. Added hemostasis was obtained. We then made a longitudinal incision below the knee on the medial calf. This was carried down through the posterior tibial artery was identified. It was compressible but did have a fair amount of plaque within the artery wall. We then used a tunneling device. Tunnel was made from the lower incision to the groin. A 6 mm ringed propatent graft was then passed through the tunnel. Patient was adequately heparinized at that time. After adequate position was accomplished the common femoral distal common femoral and femorofemoral bypass were clamped. Longitudinal graftotomy was performed and the campoverde of the femorofemoral bypass. The 6 mm graft was then trimmed and beveled the appropriate length and side anastomosis was accomplished using a 5-0 Prolene suture in usual vascular fashion. Once this was completed clamp was placed on the graft and the common femoral and femorofemoral bypass were unclamped. Adequate hemostasis was noted of the suture line. We then clamped the posterior tibial proximal distally. Longitudinal arteriotomy was made. There was a mild amount of plaque within the wall but there was a fairly good lumen present. The propatent graft was then trimmed and beveled the appropriate fashion and the side anastomosis was accomplished using a 6-0 Prolene suture again in usual vascular fashion. Prior to completing the closure backbleeding and forward bleeding was allowed to occur. The final few sutures were then placed and securely tied. Clamps were removed. There is excellent flow through the bypass graft to the distal posterior tibial artery. Good Doppler signals were heard beyond the anastom osis. There is not a high-pitched sound heard. There is a palpable posterior tibial artery pulse in the foot. Added hemostasis was then obtained of all the wounds. Once this was accomplished wounds were closed in usual fashion using running 2-0 Vicryl suture for the femoral sheath, 3-0 Vicryl suture was used for the subcutaneous tissues and alvaro for the skin. Sterile dressings were applied to the lower wound and a Prevena graft was applied to the groin wound.The patient left the operation room in satisfactory condition and tolerated the procedure well. All needle and sponge counts were correct at the end of the procedure. Kinjal Barcenas Pac assisted due to lack of resident availability and was necessary for positioning, draping, retraction, wound closure deep layers, subcutaneous tissue, and skin closure and was necessary for assisting with the case. I attest to the content of the Intraoperative Record and any orders documented therein. Any exceptions are noted below.
[2024-05-15] MEDS: ONDANSETRON INJ 2 MG/ML 2 ML VIAL IV PRN (03:27)
[2024-05-15] MEDS: POLYETHYLENE (MIRALAX) 17 GM PACK PO SCH (08:59)
[2024-05-15] MEDS ORDERED: MAGNESIUM HYDROXIDE SUSP 30 ML UDC PO PRN (09:05)
[2024-05-15] MEDS: PANTOprazole 40 MG TAB PO SCH (09:51)
[2024-05-15] MEDS: KETOROLAC TROMETHAMINE 15 MG/ML VIAL IV PRN (09:52)
--- NOTE | 2024-05-15 11:33 | Surgery Progress Note ---
Date of Service May 15, 2024 Assessment & Plan (1) PAD (peripheral artery disease): Plan: Patient is postoperative day 2 from a femoral to posterior tibial artery bypass. She is doing well. Will need to increase activity. May benefit from rehab post discharge. (2) Chest pain: Plan: troponin neg Await hospitalist evaluation and input. Admission and Anticipated Discharge Date Admission Date: May 13, 2024 Subjective Patient is complaining of groin incision discomfort. She claims to have had chest pain and tightness during the night. Not present at this time. Physical Exam Physical Exam: Patient is up in a chair. Constitutional: WD/WN, vitals as above Respiratory: normal respiratory effort; no respiratory distress Cardiovascular: Rate/Rhythm: regular rate and regular rhythm Vessels: posterior tibial pulses present (Excellent posterior tibial Doppler.) Extremities: normal capillary refill Gastrointestinal (Abdomen): Inspection/Auscultation: abdomen normal to inspection Percussion/Palpation: abdomen soft Musculoskeletal: Extremities: strength 5/5 throughout Skin: + incision (Lower incision dressing is i ntact, Prevena dressing is intact.) Neurologic: CN's II-XI intact bilaterally and moves all extremities Psychiatric: Orientation: alert and oriented x 3 Results & Data Vital Signs (Past 12 Hours) Vital Signs Temp Pulse Pulse Resp BP Pulse Ox O2 Del Method 05/15/24 09:23 Nasal Cannula 05/15/24 07:58 36.6 C 84 18 116/70 96 Nasal Cannula 05/15/24 03:32 92 H 18 129/70 94 Nasal Cannula 05/15/24 01:00 95 H 16 92 Nasal Cannula O2 Flow Rate 05/15/24 09:23 2 05/15/24 07:58 3 05/15/24 03:32 3 05/15/24 01:00 3
--- NOTE | 2024-05-15 11:41 | Hospitalist Progress Note ---
Date of Service May 15, 2024 Assessment & Plan (1) PAD (peripheral artery disease): Plan: Patient was diagnosed with popliteal artery and tibioperoneal trunk occlusion and also worsening nonhealing ulcer. She is now on day 2 status post femoral to posterior tibial artery bypass. She states pain is under good control however oxycodone she uses for pain makes her loopy. Will change her pain regimen Encourage ambulation Physical therapy evaluation pending (2) Chest pain: Plan: Patient states chest pain has resolved Troponins have been negative, no ST changes on EKG I do not suspect ACS (3) HTN (hypertension): Plan: Blood pressures under good control On amlodipine at home, continue (4) COPD (chronic obstructive pulmonary disease): Plan: Stable, no wheeze Continue as needed albuterol Plan Await evaluation by physical therapy, patient may benefit from rehab Admission and Anticipated Discharge Date Admission Date: May 13, 2024 Subjective Patient seen and examined, said the pain is under good control however the oxycodone makes her loopy Review of Systems Review of Systems: All systems reviewed are negative, apart from the ones contained in the history. Physical Exam Physical Exam: The patient is awake, alert and oriented 3, well developed and well nourished, normocephalic and atraumatic, lying in bed and in no acute distress. HEENT--PERRL, EOMI, mucous membranes and oropharynx mildly dry Neck--supple. No JVD. No bruits. Thyroid normal, trachea midline, no adenopathy. Heart--normal S1 and S2. No murmurs, rubs or gallops. Lungs--clear bilaterally, no respiratory distress, no accessory muscle use. Abdomen--normal bowel sounds and soft. Extremities--no cyanosis or clubbing. No edema. Dermatologic--normal skin turgor, normal color, no abnormal lymph nodes, no rash. Neurologic--cranial nerves II through XII grossly intact. Rheumatologic--normal range of motion. Psychiatric--normal affect. Results & Data Results & Data Vital Signs (Past 12 Hours) Vital Signs Temp Pulse Pulse Resp BP Pulse Ox O2 Del Method 05/15/24 09:23 Nasal Cannula 05/15/24 07:58 97.9 F 84 18 116/70 96 Nasal Cannula 05/15/24 03:32 92 H 18 129/70 94 Nasal Cannula 05/15/24 01:00 95 H 16 92 Nasal Cannula O2 Flow Rate 05/15/24 09:23 2 05/15/24 07:58 3 05/15/24 03:32 3 05/15/24 01:00 3 PG Care Time/CCT Total # of Minutes Spent Total Time Spent with Patient: Total time spent is greater than 50% in coordination of care (as documented) at patient's floor/unit and/or counseling patient: Coding Level of Care Code 98009 SUB INP/OBS CARE 2/35MIN Diagnoses PAD (peripheral artery disease) I73.9 Chest pain R07.9 HTN (hypertension) I10 COPD (chronic obstructive pulmonary disease) J44.9 Time Spent (min) 35
--- NOTE | 2024-05-15 15:24 | Electrocardiogram Report ---
Test Reason : Blood Pressure : / mmHG Vent. Rate : 080 BPM Atrial Rate : 080 BPM P-R Int : 146 ms QRS Dur : 078 ms QT Int : 366 ms P-R-T Axes : 048 040 052 degrees QTc Int : 422 ms Normal sinus rhythm Normal ECG No previous ECGs available Confirmed by Adarsh Olguin ([id number]) on 05/15/2024 3:24:06 PM Referred By: Gary Oshea Confirmed By:Adarsh Olguin
--- NOTE | 2024-05-15 16:31 | Electrocardiogram Report ---
Test Reason : Blood Pressure : / mmHG Vent. Rate : 091 BPM Atrial Rate : 091 BPM P-R Int : 144 ms QRS Dur : 066 ms QT Int : 356 ms P-R-T Axes : 058 035 043 degrees QTc Int : 437 ms Poor data quality, interpretation may be adversely affected Normal sinus rhythm Normal ECG When compared with ECG of 15-MAY-2024 03:49, No significant change was found Confirmed by Adarsh Olguin ([id number]) on 05/15/2024 4:31:28 PM Referred By: Gary Oshea Confirmed By:Adarsh Olguin
--- NOTE | 2024-05-15 16:31 | Electrocardiogram Report ---
Test Reason : Blood Pressure : / mmHG Vent. Rate : 089 BPM Atrial Rate : 089 BPM P-R Int : 142 ms QRS Dur : 070 ms QT Int : 352 ms P-R-T Axes : 046 035 048 degrees QTc Int : 428 ms Poor data quality, interpretation may be adversely affected Normal sinus rhythm Normal ECG When compared with ECG of 15-MAY-2024 03:45, No significant change Confirmed by Adarsh Olguin ([id number]) on 05/15/2024 4:31:22 PM Referred By: Gary Oshea Confirmed By:Adarsh Olguin
--- NOTE | 2024-05-15 16:31 | Electrocardiogram Report ---
Test Reason : Blood Pressure : / mmHG Vent. Rate : 091 BPM Atrial Rate : 091 BPM P-R Int : 136 ms QRS Dur : 076 ms QT Int : 360 ms P-R-T Axes : 050 037 048 degrees QTc Int : 442 ms Poor data quality, interpretation may be adversely affected Normal sinus rhythm Normal ECG No previous ECGs available Confirmed by Adarsh Olguin ([id number]) on 05/15/2024 4:31:05 PM Referred By: Gary Oshea Confirmed By:Adarsh Olguin
[2024-05-15] MEDS: ACETAMINOPHEN 500 MG TAB PO PRN (21:33)
[2024-05-16 08:10] LABS: Hemoglobin 10.6 g/dl (12.0-16.0); Mean Corpuscular Hemoglobin 31.2 pg (25.0-34.0); Mean Corpuscular Hgb Conc 33.1 g/dL (32.0-36.0); Mean Corpuscular Volume 94.1 fL (80.0-100.0); Mean Platelet Volume 9.2 fL (9.4-12.4); Platelet Count 258 K/uL (130-400); RDW Coefficient of Variation 13.1 % (11.5-14.5); RDW Standard Deviation 45.2 fL (36.4-46.3)
[2024-05-16 08:23] LABS: Calcium 8.5 mg/dl (8.6-10.3); Creatinine Clr Calc Pharmacy 107.4 ml/min; Est GFR (African American) 125.8 ml/min; Est GFR (Non-African American) 108.5 ml/min; Potassium 3.4 mmol/L (3.5-5.1)
--- NOTE | 2024-05-16 09:08 | Surgery Progress Note ---
Date of Service May 16, 2024 Assessment & Plan (1) PAD (peripheral artery disease): Plan: Patient is postoperative day 3 from a femoral to posterior tibial artery bypass. She is doing well. Will need to increase activity. Patient would like to go to rehab at discharge Will plan on discharge early this week (2) Chest pain: Plan: No further chest pain or tightness. Admission and Anticipated Discharge Date Admission Date: May 13, 2024 Subjective Patient claims pain is improving. No complaints of foot or leg pain other than incisional discomfort. No more complaints of chest pain or tightness. Physical Exam Physical Exam: Patient is up in a chair. Constitutional: WD/WN, vitals as above Respiratory: normal respiratory effort; no respiratory distress Cardiovascular: Rate/Rhythm: regular rate and regular rhythm Vessels: posterior tibial pulses present (Excellent posterior tibial Doppler.) Extremities: normal capillary refill Gastrointestinal (Abdomen): Inspection/Auscultation: abdomen normal to inspection Percussion/Palpation: abdomen soft Musculoskeletal: Extremities: strength 5/5 throughout Skin: + incision (Lower incision dry and clean , dressing removed, Prevena dressing is intact.) Neurologic: CN's II-XI intact bilaterally and moves all extremities Psychiatric: Orientation: alert and oriented x 3 Results & Data Vital Signs (Past 12 Hours) Vital Signs Temp Pulse Resp BP BP Pulse Ox O2 Del Method 05/16/24 08:19 36.6 C 84 17 112/71 93 Nasal Cannula 05/16/24 01:59 36.7 C 87 18 158/88 H 94 Room Air 05/15/24 21:30 Nasal Cannula O2 Flow Rate 05/16/24 08:19 2.5 05/16/24 01:59 05/15/24 21:30 2.5
--- NOTE | 2024-05-16 11:20 | Hospitalist Progress Note ---
Date of Service May 16, 2024 Assessment & Plan (1) PAD (peripheral artery disease): Plan: Patient was diagnosed with popliteal artery and tibioperoneal trunk occlusion and also worsening nonhealing ulcer. She is now on day 3 status post femoral to posterior tibial artery bypass. She states pain is under good control Encourage ambulation Physical therapy Recommend home with home PT (2) Chest pain: Plan: Patient states chest pain has resolved Troponins have been negative, no ST changes on EKG I do not suspect ACS (3) HTN (hypertension): Plan: Blood pressures under good control On amlodipine at home, continue (4) COPD (chronic obstructive pulmonary disease): Plan: Stable, no wheeze Continue as needed albuterol Plan Discharge home tomorrow with home health And home PT Admission and Anticipated Discharge Date Admission Date: May 13, 2024 Subjective Patient seen and examined comfortable seen in physical therapy, pain is improving Had a bowel movement. Tolerating diet Review of Systems Review of Systems: All systems reviewed are negative, apart from the ones contained in the history. Physical Exam Physical Exam: The patient is awake, alert and oriented 3, well developed and well nourished, normocephalic and atraumatic, lying in bed and in no acute distress. HEENT--PERRL, EOMI, mucous membranes and oropharynx mildly dry Neck--supple. No JVD. No bruits. Thyroid normal, trachea midline, no adenopathy. Heart--normal S1 and S2. No murmurs, rubs or gallops. Lungs--clear bilaterally, no respiratory distress, no accessory muscle use. Abdomen--normal bowel sounds and soft. Extremities--no cyanosis or clubbing. No edema. Dermatologic--normal skin turgor, normal color, no abnormal lymph nodes, no rash. Neurologic--cranial nerves II through XII grossly intact. Rheumatologic--normal range of motion. Psychiatric--normal affect. Results & Data Results & Data Vital Signs (Past 12 Hours) Vital Signs Temp Pulse Resp BP BP Pulse Ox O2 Del Method 05/16/24 08:19 97.9 F 84 17 112/71 93 Nasal Cannula 05/16/24 01:59 98.1 F 87 18 158/88 H 94 Room Air O2 Flow Rate 05/16/24 08:19 2.5 05/16/24 01:59 PG Care Time/CCT Total # of Minutes Spent Total Time Spent with Patient: Total time spent is greater than 50% in coordination of care (as documented) at patient's floor/unit and/or counseling patient: Coding Level of Care Code 71707 SUB INP/OBS CARE 2/35MIN Diagnoses PAD (peripheral artery disease) I73.9 Chest pain R07.9 HTN (hypertension) I10 COPD (chronic obstructive pulmonary disease) J44.9 Time Spent (min) 35
[2024-05-16] MEDS: KETOROLAC TROMETHAMINE 15 MG/ML VIAL IV ONE (18:32)
[2024-05-16] MEDS ORDERED: NYSTATIN POWDER 15GM BTL EXT PRN (22:25)
--- NOTE | 2024-05-17 09:06 | Hospitalist Progress Note ---
Date of Service May 17, 2024 Assessment & Plan (1) PAD (peripheral artery disease): Plan: Patient was diagnosed with popliteal artery and tibioperoneal trunk occlusion and also worsening nonhealing ulcer. She is now on day 4 status post femoral to posterior tibial artery bypass. She states pain is under good control Encourage ambulation Physical therapy Recommend home with home PT (2) Chest pain: Plan: Patient states chest pain has resolved Troponins have been negative, no ST changes on EKG I do not suspect ACS (3) HTN (hypertension): Plan: Blood pressures under good control On amlodipine at home, continue (4) COPD (chronic obstructive pulmonary disease): Plan: Stable, no wheeze Continue as needed albuterol Patient on 2.5 L of oxygen at home, continue Plan Discharge Plan per Vascular who is primary. Patient is medically stable to be discharged Admission and Anticipated Discharge Date Admission Date: May 13, 2024 Subjective Patient seen and examined comfortable , Pain leg is improving, tolerating diet Review of Systems Review of Systems: All systems reviewed are negative, apart from the ones contained in the history. Physical Exam Physical Exam: The patient is awake, alert and oriented 3, well developed and well nourished, normocephalic and atraumatic, lying in bed and in no acute distress. HEENT--PERRL, EOMI, mucous membranes and oropharynx mildly dry Neck--supple. No JVD. No bruits. Thyroid normal, trachea midline, no adenopathy. Heart--normal S1 and S2. No murmurs, rubs or gallops. Lungs--clear bilaterally, no respiratory distress, no accessory muscle use. Abdomen--normal bowel sounds and soft. Extremities--no cyanosis or clubbing. No edema. Dermatologic--normal skin turgor, normal color, no abnormal lymph nodes, no rash. Neurologic--cranial nerves II through XII grossly intact. Rheumatologic--normal range of motion. Psychiatric--normal affect. Results & Data Results & Data Vital Signs (Past 12 Hours) Vital Signs Temp Pulse Resp BP Pulse Ox O2 Del Method O2 Flow Rate 05/17/24 08:00 97.9 F 85 17 130/78 95 Nasal Cannula 2.5 05/17/24 07:30 Nasal Cannula 2.5 05/16/24 21:12 98.1 F 80 18 124/78 96 Nasal Cannula 2.5 PG Care Time/CCT Total # of Minutes Spent Total Time Spent with Patient: Total time spent is greater than 50% in coordination of care (as documented) at patient's floor/unit and/or counseling patient: Coding Level of Care Code 54338 SUB INP/OBS CARE 2/35MIN Diagnoses PAD (peripheral artery disease) I73.9 Chest pain R07.9 HTN (hypertension) I10 COPD (chronic obstructive pulmonary disease) J44.9 Time Spent (min) 35
[2024-05-18 06:59] LABS: Hematocrit (blood only) 31.7 % (37.0-47.0); Hemoglobin 10.9 g/dl (12.0-16.0); Mean Corpuscular Hemoglobin 31.5 pg (25.0-34.0); Mean Corpuscular Hgb Conc 34.4 g/dL (32.0-36.0); Mean Corpuscular Volume 91.6 fL (80.0-100.0); Mean Platelet Volume 9.1 fL (9.4-12.4); Platelet Count 318 K/uL (130-400); RDW Coefficient of Variation 12.8 % (11.5-14.5); RDW Standard Deviation 42.7 fL (36.4-46.3); Red Blood Count 3.46 M/uL (4.20-5.40)
[2024-05-18 10:44] LABS: Calcium 8.8 mg/dl (8.6-10.3); Potassium 3.3 mmol/L (3.5-5.1)
[2024-05-18 10:50] LABS: BUN Creatinine Ratio 12.2 (10-20); Creatinine Clr Calc Pharmacy 87.6 ml/min; Est GFR (African American) 117.7 ml/min; Est GFR (Non-African American) 101.5 ml/min
--- NOTE | 2024-05-18 12:28 | Hospitalist Progress Note ---
Date of Service May 18, 2024 Assessment & Plan (1) PAD (peripheral artery disease): Plan: Patient was diagnosed with popliteal artery and tibioperoneal trunk occlusion and also worsening nonhealing ulcer. - S/p femoral to posterior tibial artery bypass with Dr. Oshea on 05/13 She states pain is under good control Encourage ambulation Physical therapy Recommend home with home PT Continues on Plavix and statin (2) Chest pain: Plan: Patient states chest pain has resolved Troponin x1 negative, no ST changes on EKG do not suspect ACS no further episodes, denies GERD at present continue PPI at discharge - rx sent (3) HTN (hypertension): Plan: Blood pressures under good control On amlodipine at home, continue also with hx of Hyponatremia - recommend continue 1.5L fluid restriction on discharge, f/u BMP with PCP K replaced PO today. (4) COPD (chronic obstructive pulmonary disease): Plan: Stable, no wheeze Continue Breo and chornic prednisone Continue as needed albuterol Patient on 2.5 L of oxygen at home, continue Plan Dispo: medically stable Thank you for allowing us to participate in the care of this patient, please reach out with any questions or concerns. Medicine will sign off. Admission and Anticipated Discharge Date Admission Date: May 13, 2024 Supervising Physician Co-Signing Physician Notes PA Supervision Note: I did not personally see or examine the patient today, but I verified all rivera points of MAXINE Vergara's assessment and plan with the following exceptions/additions: None Subjective Patient sitting at the side of the bed, anxious for discharge. Denies any reccourance of chest pain. States she was having GERD/reflux when she was on different pain medication but this has resolved. Review of Systems Review of Systems: All systems reviewed & are unremarkable except as noted in Subjective Physical Exam Physical Exam: General: NAD, sitting up at the side of the bed VS as above Resp: normal respiratory effort, lungs diminished in bases, on 2.5L NC this is her baseline CV: RRR, no murmur, Extremities: Moves all extremities, no edema. Dressing over right marsh c/d/i Neuro: A&O x3, Results & Data Results & Data Vital Signs (Past 12 Hours) Vital Signs Temp Pulse Resp BP Pulse Ox O2 Del Method O2 Flow Rate 05/18/24 11:47 3 07/01/24 08:12 36.5 C 81 18 109/71 95 Nasal Cannula 2.5 05/18/24 08:00 Nasal Cannula 2.5 Laboratory Results CBC and chemistry reviewed PG Care Time/CCT Total # of Minutes Spent Total Time Spent with Patient: Total time spent is greater than 50% in coordination of care (as documented) at patient's floor/unit and/or counseling patient: Coding Level of Care Code 35756 SUB INP/OBS CARE 3/50MIN Diagnoses PAD (peripheral artery disease) I73.9 Chest pain R07.9 HTN (hypertension) I10 COPD (chronic obstructive pulmonary disease) J44.9
[2024-05-18] MEDS: POTASSIUM CHLORIDE CRTAB 20 MEQ TABCR PO STA (12:30)
--- NOTE | 2024-05-18 14:03 | Surgery Progress Note ---
Date of Service May 18, 2024 Assessment & Plan (1) PAD (peripheral artery disease): Plan: Patient is postoperative day 5 from a femoral to posterior tibial artery bypass. She is doing well. Getting around well with a walker. Does not want rehab. Will D/C home today. Admission and Anticipated Discharge Date Admission Date: May 13, 2024 Subjective Patient only has complaints of incisional discomfort. Walked 150feet with walker without foot or leg cramping. Claims her leg feels much better. Physical Exam Physical Exam: Patient is up in a chair. Constitutional: WD/WN, vitals as above Respiratory: normal respiratory effort; no respiratory distress Cardiovascular: Rate/Rhythm: regular rate and regular rhythm Vessels: posterior tibial pulses present (Excellent posterior tibial Doppler.) Extremities: normal capillary refill Gastrointestinal (Abdomen): Inspection/Auscultation: abdomen normal to inspection Percussion/Palpation: abdomen soft Musculoskeletal: Extremities: strength 5/5 throughout Skin: + incision (Lower incision dry and clean , Prevena dressing is intact.) Neurologic: CN's II-XI intact bilaterally and moves all extremities Psychiatric: Orientation: alert and oriented x 3 Results & Data Vital Signs (Past 12 Hours) Vital Signs Temp Pulse Resp BP Pulse Ox O2 Del Method O2 Flow Rate 05/18/24 11:47 3 05/18/24 08:12 36.5 C 81 18 109/71 95 Nasal Cannula 2.5 05/18/24 08:00 Nasal Cannula 2.5
--- NOTE | 2024-05-18 14:05 | Discharge Summary ---
Date of Service May 18, 2024 Admission HPI Per Admitting Provider Subjective I had the pleasure of seeing Princess today for follow-up. As you know she is a 68-year-old female who recently had arteriography for a nonhealing ulcer over her first metatarsal head of the right foot. She was found to have a popliteal artery and tibioperoneal trunk occlusion. He is seen in the office today. Her ulcer is now gotten bigger and she has new ulcerations of the great toe. Objective Vitals & Measurements HR: 88 (Monitored) BP: 110/64 SpO2: 96% Physical Exam On exam patient is awake alert and oriented x 3. Blood pressure is 110/64. Lungs are clear. Cor has a reg rate and rhythm. Abdominal exam is benign. She has good femoral pulses in the patent femorofemoral bypass. The right lower extremity has no palpable pulses. There is ulceration present over the metat arsal head medially as well as the 2 ulcerations of the great toe on the medial surface and dorsal surface. Assessment/Plan 1. 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 Risks options benefits were discussed with the patient and documented in the consent form. She is agreeable to go ahead with the surgical procedure. We will image her saphenous vein for availability for a bypass. If the saphenous vein is not usable then prosthetic will be used. We also have her undergo cardiac clearance prior to the procedure. Thank you very much for letting us participate in the care of this patient. Sincerely, Ebony Oshea MD Attestation I have personally spent ___25__ minutes performing [id number] and [id number] activities on this date of service. Activities Include: _x_ review of the medical record _x_ obtaining a history _x_ physical exam/evaluation __ review labs __ review radiology reports _x_ counseling/educating patient/family/caregiver __ discussion/referral to other healthcare professional _x_ documenting care in the medical record __ independent interpretation of results __ communication of results to patient/family/caregiver __ coordination of care Signature Line Electronic Signature on File Gary Oshea MD Author Signature Dt/Tm: 04/30/2024 11:41 AM Clinical Staff Educator [facility] [address], [address] [place] [address] Electronically Reviewed/Signed by: Gary Oshea MD Cosigner Signature Dt/Tm: 04/30/2024 11:42 AM Clinical Staff Educator [facility] [address], [address] [place] [address] EJS Result Type: .Outpt Ltr Date of Service: April 30, 2024 11:39 EDT Authorization Status: Modified Subject: Follow Up Visit Author or Import Date: MD Oshea Eugene J on April 30, 2024 11:41 EDT Verified By: MD Oshea Eugene J on April 30, 2024 11:41 EDT Encounter info: [id number], [facility], Clinic, 04/30/2024 - 04/30/2024 Admission Exam Per Admitting Provider On exam patient is awake alert and oriented x 3. Blood pressure is 110/64. Lungs are clear. Cor has a reg rate and rhythm. Abdominal exam is benign. She has good femoral pulses in the patent femorofemoral bypass. The right lower extremity has no palpable pulses. There is ulceration present over the metatarsal head medially as well as the 2 ulcerations of the great toe on the medial surface and dorsal surface. Principal Diagnosis right superficial femoral artery occlusion with ulceration Discharge Exam Patient is up in a chair. Constitutional WD/WN, vitals as above Respiratory normal respiratory effort; no respiratory distress Cardiovascular Rate/Rhythm: regular rate and regular rhythm Vessels: posterior tibial pulses present (Excellent posterior tibial Doppler.) Extremities: normal capillary refill Gastrointestinal (Abdomen) Inspection/Auscultation: abdomen normal to inspection Percussion/Palpation: abdomen soft Musculoskeletal Extremities: strength 5/5 throughout Skin + incision (Lower incision dry and clean, Prevena dressing is intact.) Neurologic CN's II-XI intact bilaterally and moves all extremities Psychiatric Orientation: alert and oriented x 3 Discharge Data Allergies Allergy/AdvReac Type Severity Reaction Status Date / Time green marroquin Allergy Mild Rash Verified 05/13/24 10:13 Penicillins Allergy Mild Hives Verified 05/13/24 10:13 Sulfa (Sulfonamide Allergy Mild Hives Verified 05/13/24 10:13 Antibiotics) codeine AdvReac Severe Vomiting Verified 05/13/24 10:13 Consultations 05/13/24 17:22 Consult Assembler Piano Routine 05/15/24 03:49 Consult Hospitalist Routine Procedures Performed Operation Date: 05/13/24 11:50 Actual Procedures p Right Femoral Artery to Posterior Tibial Artery Prosthetic Bypass Graft(Right) - Gary Oshea MD Hospital Course (1) PAD (peripheral artery disease): Patient is postoperative day 5 from a femoral to posterior tibial artery bypass. She is doing well. Getting around well with a walker. Does not want rehab. Will D/C home today. Total Time Total Time Spent Total Time Spent (In Minutes): 0 Discharge Plan Discharge Items Patient Disposition: Home - Self-Care Reason For Visit: RIGHT SUPERFICIAL FEMORAL ARTERY OCCLUSION Discharge Diagnosis: femoral artery occlusion Activity: Per Instructions section Non-emergency contact: Surgeon Call non-emergency contact if: your temperature is above 101.5, your wound has increased redness, your wound has increased drainage and your wound pain has increased Follow-up/Referrals: Guerline Alicia CRNP [Primary Care Provider] - (PATIENT WILL MAKE HER OWN PCP HOSPITAL FOLLOW UP IN 7-10 BUSINESS DAYS.) Diet: Heart Healthy Addtl Attending Provider Instructions: ACTIVITY RECOMMENDATIONS: Ambulate as much as possible. Elevate leg when sitting. Once suction is lost in groin dressing, remove the dressing and discard everything. SPECIAL CARE INSTRUCTIONS: Call your doctor if: * Temperature above 101 degrees * Pain not relieved by pain medicine ordered * There is increased drainage or redness from any incision * You have any unanswered questions or concerns. Call [phone] to schedule a follow up appointment if one not already scheduled. Pending Studies at Discharge: No Stand-Alone Forms: My [employer], Smoking Cessation Medications and DC Order Prescriptions: New ibuprofen 600 mg tablet 600 mg PO Q8H PRN (Reason: pain) Qty: 10 0RF Continued atorvastatin [Lipitor] 40 mg Tablet 40 mg PO HS prednisone 5 mg Tablet 5 mg PO QAM clopidogrel 75 mg Tablet 75 mg PO QAM (DME) nebulizers [facility] [place] Patient Comments: used this am at 0530 metoprolol succinate 25 mg Tablet Extended Release 24 Hr 100 mg PO QAM Combivent Respimat 20-100 mcg/actuation Mist 2 puff inhalation QID PRN (Reason: Shortness Of Breath Or Wheezing) amlodipine 10 mg Tablet 10 mg PO QAM doxycycline hyclate 100 mg Capsule 100 mg PO BID acetaminophen 500 mg PO acetaminophen 500 mg Tablet 500 mg PO Q6H PRN (Reason: Pain, Severe) Lasix 20 mg PO PRN (Reason: Edema) potassium chloride 40 meq PO DIRECTED PRN (Reason: when taking Lasix and/or cramp) Breo Ellipta 50-25 mcg/dose Blister With Device 1 ea INHALATION DAILY Changed oxycodone 5 mg Tablet 5 mg PO Q6H PRN (Reason: pain) Qty: 30 0RF Discharge Orders: Discharge Order (Routine); Ordered 05/18/24 Ordered By: Gary Oshea Admission Data Admit Date/Time: 05/13/24 11:41 Attending Provider: Gary Oshea Admit Provider: Gary Oshea Primary Care Provider: Guerline Alicia Other Providers: Aureliano Perera; Tomasz Iglesias; Sridhar Woods; Martir Colin; Lacie Rosario Muqueet; Rocky Bowers; Yris Thomas; Dianne Carver; Todd Rizzo; Rodo St; Alyssa Simpson; Jaquelin Trujillo
== END 2024-05-18 14:54 | disposition home health service (06) | DRG 253 ==
LOC: ASU 09:32 → PACUINP 11:41 → 1E 18:18 → 3W 05-14 18:06